=== PATIENT | male | born 1995 | race Caucasian/White ===

== ENCOUNTER 2016-06-21 07:14 | Day surgery (SDC) | payer OTHER ==
[2016-06-21 07:25] VITALS: RESP 16; O2SAT 98
--- NOTE | 2016-06-21 07:34 | EDPHY ---
H & P Stated Complaint: RLQ, Epigastric pain, since 0300hrs. HPI/ROS: CHIEF COMPLAINT: Abdominal pain HISTORY OF PRESENT ILLNESS: The patient is a 21 year old male presenting with sudden onset of abdominal pain that woke him from sleep this morning. The patient has dull centralized pain and sharp right lower quadrant pain. The right lower quadrant pain radiates into his hip and right testicle. He has not urinated this morning. He has had 3 episodes of diarrhea this morning. Diarrhea is like "ribbon strands". He had chills while in bed this morning and has intermittently felt nauseous, without emesis. The patient recently stopped antibiotics for a right lower extremity infection. He has been having regular bowel movements prior to today. REVIEW OF SYSTEMS: A ten point review of systems was performed and is negative with the exception of the items mentioned in the HPI. Source: Patient - Personal History Current Tetanus/Diphtheria Vaccine: Yes Current Tetanus Diphtheria and Acellular Pertussis (TDAP): Yes Tetanus Vaccine Date: 2014 - Medical/Surgical History Hx Asthma: No Hx Chronic Respiratory Disease: No Hx Diabetes: No Hx Cardiac Disease: No Hx Renal Disease: No Hx Cirrhosis: No Hx Alcoholism: No Hx HIV/AIDS: No Hx Splenectomy or Spleen Trauma: No Other PMH: ORIF R wrist. Excecise induced asthma. - Social History Smoking Status: Never smoked Additional Social History: Student at [employer]. Occasional alcohol use. No drug use. - Physical Exam Exam: General Appearance: Alert. Vital signs reviewed. Eyes: Pupils equal and round, no conjunctival injection, no discharge. Anicteric. ENT, Mouth: Mucous membranes are moist, no oropharyngeal erythema or edema. Neck: No lymphadenopathy, supple. Respiratory: Lungs are clear to auscultation; no wheezes, rales, or rhonchi. Cardiovascular: Regular rate and rhythm; no murmur, rub, or gallop. Gastrointestinal: Abdomen is soft. He has periumbilical pain as well as right lower quadrant tenderness. Guarding RLQ. : Normal circumcised male, no testicular swelling or tenderness. Skin: Warm and dry, no rashes on exposed skin, normal color. Back: Nontender to palpation over the thoracolumbar spine. No CVAT. Extremities: No lower extremity edema, no calf tenderness or swelling. Neurological: Alert and oriented. Moving all four extremities easily and equally. Psychiatric: Normal affect. Constitutional: Initial Vital Signs Temperature (C) 37.1 C 06/21/16 07:22 Heart Rate 92 06/21/16 07:22 Respiratory Rate 16 06/21/16 07:22 Blood Pressure 133/73 H 06/21/16 07:22 O2 Sat (%) 98 06/21/16 07:22 O2 Delivery Mode Room Air Allergies/Adverse Reactions: No Known Allergies Allergy (Unverified 06/21/16 07:25) Home Medications: Medication Instructions Recorded NK [No Known Home Meds] 06/21/16 Medical Decision Making ED Course/Re-evaluation: The patient presents with sudden onset of abdominal pain at 3 am. He has associated nausea and diarrhea. On exam, the patient has periumbilical tenderness and right lower quadrant tenderness. Testicular exam is normal. IV was established. The patient received 1L normal saline, 4mg Zofran, and 0.5 mg Dilaudid for nausea and pain. I suspect early appendicitis. Plan to check BMP, CBC, and urinalysis. The patient has an elevated WBC. UA is pending. Based on symptoms and lab findings, I will consult the general surgeon. 8:50 a.m.: Dr. Sexton, General surgeon assessed the patient in the ED. He will admit the patient for acute appendicitis/OR. Invanz one gram IV administered. Differential Diagnosis: I considered a ddx of appendicitis, gastritis, gastroenteritis, enteritis, SBO, testicular torsion, epididymitis, and UTI. - Data Points Laboratory Results: Laboratory Results 06/21/16 07:44 06/21/16 07:44 Medications Given: Discontinued Medications Hydromorphone HCl (Dilaudid) 0.5 mg IVP EDNOW ONE Stop: 06/21/16 07:46 Last Admin: 06/21/16 07:45 Dose: 0.5 mg Sodium Chloride (Ns) 1,000 mls @ 0 mls/hr IV ONCE ONE PRN Reason: Wide Open Stop: 06/21/16 07:48 Last Admin: 06/21/16 07:47 Dose: 1,000 mls Ondansetron HCl (Zofran Odt) 4 mg PO EDNOW ONE Stop: 06/21/16 07:46 Last Admin: 06/21/16 07:51 Dose: Not Given Ondansetron HCl (Zofran) 4 mg IVP EDNOW ONE Stop: 06/21/16 07:52 Last Admin: 06/21/16 07:45 Dose: 4 mg Departure - Departure Disposition: [facility] Inpatient Acute Clinical Impression: Appendicitis Qualifiers: Appendicitis type: acute appendicitis Acute appendicitis type: unspecified acute appendicitis type Qualified Code(s): K35.80 - Unspecified acute appendicitis Condition: Good Report Scribed for: Ofelia Chun Report Scribed by: Lise Peterson Date of Report: 06/21/16 Time of Report: 07:41 Physician Review and Approval Statement: 06/21/16 07:34 Portions of this note were transcribed by the director medical surgical. I, Dr. Ofelia Chun, personally performed the history, physical exam, and medical decision- making; and confirmed the accuracy of the information in the transcribed note.
[2016-06-21] MEDS ORDERED: HYDROmorphONE/DILAUDID 1 MG/ML SYR IVP ONE (07:45)
[2016-06-21] MEDS ORDERED: ONDANSETRON DISINTEGRATING 4 MG TAB PO ONE (07:45)
[2016-06-21] MEDS ORDERED: NS 1,000 ML IV ONE (07:47)
[2016-06-21] MEDS ORDERED: ONDANSETRON 4 MG/2 ML VIAL ONE (07:50)
[2016-06-21] MEDS ORDERED: ONDANSETRON 4 MG/2 ML VIAL IVP ONE (07:51)
[2016-06-21 07:54] LABS: % IMMATURE GRANULYOCYTES 0.3 % (0.0-1.1); ABSOLUTE IMMATURE GRANULOCYTES 0.05 10^3/uL (0.00-0.10); ADD DIFF? NO; ADD MORPH? NO; ADD SCAN? NO; ATYPICAL LYMPHOCYTE FLAG 10 (0-99); FRAGMENT RBC FLAG 20 (0-99); HEMATOCRIT 50.5 % (40.0-51.0); HEMOGLOBIN 16.8 g/dL (13.7-17.5); LEFT SHIFT FLG 0 (0-99); LIPEMIA HEMOLYSIS FLAG 80 (0-99); MEAN CELL HEMOGLOBIN 28.6 pg (27.9-34.1); MEAN CELL HEMOGLOBIN CONCENTR. 33.3 g/dL (32.4-36.7); MEAN CELL VOLUME 85.9 fL (81.5-99.8); MEAN PLATELET VOLUME 10.8 fL (8.7-11.7); PLATELET CLUMPS FLAG 0 (0-99); PLATELET COUNT 236 10^3/uL (150-400); RED BLOOD CELL COUNT 5.88 10^6/uL (4.40-6.38); RED CELL DISTRIBUTION WIDTH 13.5 % (11.5-15.2)
[2016-06-21 08:08] LABS: ANION GAP 11 mEq/L (8-16); CALCIUM 9.9 mg/dL (8.5-10.4); CARBON DIOXIDE 25 mEq/l (22-31); CHLORIDE 103 mEq/L (97-110); CREATININE 1.1 mg/dL (0.7-1.3); GLOMERULAR FILTRATION RATE > 60; GLUCOSE 92 mg/dL (70-100); POTASSIUM 4.2 mEq/L (3.5-5.2); SODIUM 139 mEq/L (134-144)
[2016-06-21] MEDS ORDERED: ERTAPENEM 1 GM in NS 100 ML IV ONE (09:12)
[2016-06-21] MEDS ORDERED: SKIN ADHESIVE (DERMABOND) 1 EACH TP ONE (09:18)
[2016-06-21] MEDS ORDERED: BUPIVACAINE 0.5% 30 ML SDV ONE (09:18)
[2016-06-21 09:21] LABS: COLOR YELLOW; LEUKOCYTE ESTERASE,URINE NEGATIVE (NEGATIVE); NITRITE,URINE NEGATIVE (NEGATIVE)
[2016-06-21 09:27] VITALS: BP 123/74; PULSE 82; TEMP 96.1
[2016-06-21] MEDS ORDERED: MIDAZOLAM 2 MG/2 ML VIAL ONE (09:36)
[2016-06-21] MEDS ORDERED: fentaNYL 250 MCG/5 ML INJ ONE (09:39)
[2016-06-21] MEDS ORDERED: PROPOFOL/EMULSION 500 MG/50 ML BOTTLE IV ONE (09:40)
[2016-06-21] MEDS ORDERED: DEXAMETHASONE 4 MG/ML VIAL ONE (09:41)
[2016-06-21] MEDS ORDERED: ROCURONIUM 50 MG/5 ML VIAL ONE (09:41)
[2016-06-21] MEDS ORDERED: LIDOCAINE 2% 100 MG/5 ML SYR ONE (09:41)
--- NOTE | 2016-06-21 11:12 | GPN ---
[f rep st] PROCEDURE NOTE DATE OF PROCEDURE: 06/21/2016 PREOPERATIVE DIAGNOSIS: Acute appendicitis. POSTOPERATIVE DIAGNOSIS: Acute appendicitis. OPERATION: Laparoscopic appendectomy. SURGEON: Colton Sexton M.D. INDICATIONS: The patient is a 21-year-old male with clinical picture of acute appendicitis. No jasmin ging studies were done. PROCEDURE: General anesthetic. The abdomen was scrubbed with ChloraPrep, draped in the usual steri le fashion. Infraumbilical incision made. Veress needle used to achieve a pneumoperitoneum. Two 5 mm ports were placed in the midline. The viscera were examined. The appendix was found to be some what retrocecal, but clearly inflamed, but not exudate. The mesoappendix was harvested with a Harmo sivakumar Scalpel, and the appendix was amputated flush on the cecum with an Endo-KIMBER 45 blue cartridge. It was placed in a pouch and extracted from the fascial defect at the umbilicus. There was no signi ficant fluid in the abdomen. No bleeding. The fascial defect at the umbilicus was closed with 0 Vi cryl, skin with 4-0 Vicryl and Dermabond. The patient tolerated the procedure well. /[id number]/MODL
== END 2016-06-21 12:55 | disposition home or self-care (01) ==
LOC: FSGY 09:28
PROVIDERS: ATTEND Surgery
PROC: 0DTJ4ZZ Resection of Appendix, Percutaneous Endoscopic Approach (ICD-10-PCS; principal; 2016-06-21 10:00)
DX: K35.80 Unspecified acute appendicitis (principal)
CPT/HCPCS: J1100; J1170; J1335; J2001; J2250; J2405; J2704; J3010